=== PATIENT | male | born 1960 | race Caucasian/White ===

== ENCOUNTER 2016-08-13 20:01 | Emergency (ER) | payer OTHER ==
[~2016-08-13] VITALS: Ht 167.6 cm; Wt 74.8 kg
[~2016-08-13 20:01] MED LIST: METH-37 PO; MORP15TA3 PO; OXYC5TAB PO; SENN1TAB9 PO; TRAM-48 PO
[2016-08-13] MEDS ORDERED: TAMSULOSIN 0.4 MG CAP.ER.24H. PO ONE ×2 (20:29→20:30)
[2016-08-13] MEDS ORDERED: KETOROLAC TROMETHAMINE 30 MG/ML INJ. ONE (20:29)
[2016-08-13] MEDS ORDERED: ONDANSETRON PF 4 MG/2 ML VIAL. IV ONE (20:30)
[2016-08-13] MEDS ORDERED: KETOROLAC TROMETHAMINE 30 MG/ML INJ. IV ONE (20:30)
[2016-08-13] MEDS ORDERED: HYDROmorphone 2 MG/ML VIAL ONE (20:30)
[2016-08-13] MEDS ORDERED: HYDROmorphone 2 MG/ML VIAL IV ONE ×2 (20:30→22:30)
[2016-08-13] MEDS ORDERED: IV NORMAL SALINE 1000ML BAG 1,000 ML IV ONE (20:30)
[2016-08-13 20:33] LABS: BASO # 0.1 x10^3/uL (0.0-0.2); BASO % 1 % (0-3); EOS % 4 % (0-3); HEMATOCRIT 43.4 % (39.0-53.0); HEMOGLOBIN 15.2 g/dL (13.0-17.5); LYMPH # 2.1 x10^3/uL (1.0-4.8); LYMPH % 26 % (24-48); MEAN CORPUSCULAR HEMOGLOBIN 30 pg (25-35); MEAN CORPUSCULAR HGB CONC 35 g/dL (31-37); MEAN CORPUSCULAR VOLUME 87 fL (79-100); MONO % 11 % (0-9); NEUT % 58 % (31-73); PLATELET COUNT 230 x10^3/uL (140-400); RED BLOOD COUNT 5.01 x10^6/uL (4.30-5.70); RED CELL DISTRIBUTION WIDTH 13.5 % (11.5-14.5)
[2016-08-13 20:48] LABS: CALCIUM 9.3 mg/dL (8.5-10.1); POTASSIUM 3.9 mmol/L (3.5-5.1)
[2016-08-13 20:54] LABS: ALBUMIN 3.9 g/dL (3.4-5.0); ALBUMIN/GLOBULIN RATIO 1.1 (1.0-1.7); TOTAL BILIRUBIN 0.3 mg/dL (0.2-1.0); TOTAL PROTEIN 7.4 g/dL (6.4-8.2)
[2016-08-13 21:21] LABS: BILIRUBIN,URINE NEGATIVE (NEG); GLUCOSE,URINE NEGATIVE (NEG); NITRITE,URINE NEGATIVE (NEG); PROTEIN,URINE NEGATIVE (NEG-TRACE); UROBILINOGEN,URINE 0.2 mg/dL (0.2 mg/dL)
--- NOTE | 2016-08-13 21:24 | RAD ---
History: Left flank pain. Comparison: CT abdomen and pelvis November 01, 2012. Technique: CT of the abdomen and pelvis was performed without intravenous or oral contrast. Exposure: One or more of the following individualized dose reduction techniques were utilized for this examination: 1. Automated exposure control 2. Adjustment of the mA and/or kV according to patient size 3. Use of iterative reconstruction technique Findings: Evaluation of solid organs of the abdomen and pelvis is limited by lack of intravenous contrast. Evaluation of enteric structures may be limited by lack of oral contrast. Liver, spleen, pancreas, gallbladder, and bilateral adrenal glands are unremarkable. No bowel obstruction or inflammation is seen. Appendix is without evidence of inflammation. There is moderate left hydroureteronephrosis secondary to 4 mm distal left ureteral stone located 1 cm from the ureterovesical junction. The left kidney demonstrates about 8 stones ranging in size from 2 to 6 mm. Right kidney and ureter are free of stone or obstruction. A small fat-containing epigastric ventral hernia is present. No free air or free fluid is seen in the abdomen or pelvis. Impression: 1. Moderate left hydroureteronephrosis secondary to 4 mm distal left ureteral stone. 2. Multiple left renal collecting system stones. Electronically signed by: Noah Herrmann MD (08/13/2016 9:21 PM)
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
[2016-08-13 21:36] LABS: BACTERIA,URINE 0 /HPF (0-FEW); RBC,URINE >40 /HPF (0-2); SQUAMOUS EPITHELIAL CELL,UR MOD /LPF; WBC,URINE 0 /HPF (0-4)
[2016-08-13 22:00] VITALS: BP 160/94
--- NOTE | 2016-08-13 22:08 | ACF ---
Admission Forms Criteria RENAL COLIC AND KIDNEY STONES Clinical Indications for Admission to Inpatient Care ( Place 'X' for any and all applicable criteria): Admission is indicated for ANY ONE of the following (1)(2)(3)(4): [X]I. Inpatient admission required rather than observation care (Also use Renal Colic and Kidney Stones: Observation Care Criteria as appropriate) because of ANY ONE of the following: [ ]a) Severe pain requiring acute inpatient management [ ]b) Urinary tract infection identified [ ]c) Vomiting that is severe or persistent [ ]d) IV fluid required rather than oral rehydration to replace significant ongoing (eg, for greater than 24 hours) losses (greater than 200 mL/hr or 3 L/m2 per day) [ ]e) Percutaneous or open drainage (eg, abscess, biliary tract) procedures [X]f) Other condition, treatment or monitoring requiring inpatient admission [ ]II. Impending acute renal failure [ ]III. Bilateral obstruction [ ]IV. Single kidney with obstruction [ ]V. Transplanted kidney with obstruction [ ]. Possible open surgical procedure needed (eg, pyonephrosis, stone removal not amendable to other means) [ ]VII. Hemodynamic instability Extended stay beyond goal length of stay may be needed for(2)(3)(31): [ ]a) Failed initial stone removal (32) [ ]b) Pyonephrosis [ ]c) Obstructive uropathy with urinary tract infection [ ]d) Procedure complications [ ]e) Comorbidities (22) The original [facility] [employer] content created by [employer] has been revised. The portions of the content which have been revised are identified through the use of italic text or in bold, and [employer] [facility] [facility] has neither reviewed nor approved the modified material. All other unmodified content is copyright [facility] [employer]. Please see references footnoted in the original [facility] [employer] edition 2016 Admission Criteria Met?: Yes CHIKI JEREZ Aug 13, 2016 22:08
[2016-08-13] MEDS ORDERED: OXYC-323 PO (22:10)
[2016-08-13] MEDS ORDERED: TAMS0.4C97 PO (22:10)
[2016-08-13] MEDS ORDERED: ONDA4TAB10 SL (22:10)
[2016-08-13] MEDS ORDERED: PROM25TA10 PO (22:10)
== END 2016-08-13 22:32 | disposition home or self-care (01) ==
LOC: ER 20:01
DX: N13.2 Hydronephrosis with renal and ureteral calculous obstruction (principal); Z87.442 Personal history of urinary calculi; Z98.890 Other specified postprocedural states
CPT/HCPCS: 36415; 74176; 80053; 81001; 83690; 85027; 96361; 96374; 96375; 96376; 99285; J1170; J1885; J2405; J7030

== ENCOUNTER 2017-02-17 06:58 | Emergency (ER) | payer OTHER ==
[2017-02-17] MEDS: KETOROLAC 30 MG/ML INJ. IV (07:15)
[2017-02-17] MEDS: IV NORMAL SALINE 1000ML BAG 1,000 ML IV ×2 (07:16→09:05)
[2017-02-17] MEDS: ONDANSETRON PF 4 MG/2 ML VIAL. IV (07:17)
[2017-02-17 07:27] LABS: BILIRUBIN,URINE NEGATIVE (NEG); GLUCOSE,URINE NEGATIVE (NEG); NITRITE,URINE NEGATIVE (NEG); PH,URINE 7.5; PROTEIN,URINE NEGATIVE (NEG-TRACE); UROBILINOGEN,URINE 0.2 mg/dL (0.2 mg/dL)
[2017-02-17 07:40] LABS: RBC,URINE >40 /HPF (0-2); SQUAMOUS EPITHELIAL CELL,UR OCC /LPF
[2017-02-17 07:41] LABS: BACTERIA,URINE 0 /HPF (0-FEW); WBC,URINE OCC /HPF (0-4)
[2017-02-17] MEDS: diphenhydrAMINE 50 MG/ML VIAL IVP (08:10)
[2017-02-17] MEDS: MORPHINE SULFATE 2 MG/ML DISP.SYRIN. IV (08:11)
[2017-02-17] MEDS: PROMETHAZINE 12.5 MG in IV DEXTROSE 5% 50 ML IV (08:24)
[2017-02-17] MEDS: HYDROmorphone 2 MG/ML VIAL IV ×3 (08:50→14:33)
[2017-02-17 10:36] LABS: ADD MAN DIFF? NO
[2017-02-17 10:42] LABS: BASO # 0.1 x10^3/uL (0.0-0.2); BASO % 1 % (0-3); EOS % 7 % (0-3); HEMATOCRIT 46.1 % (39.0-53.0); HEMOGLOBIN 15.6 g/dL (13.0-17.5); LYMPH # 1.3 x10^3/uL (1.0-4.8); LYMPH % 24 % (24-48); MEAN CORPUSCULAR HEMOGLOBIN 30 pg (25-35); MEAN CORPUSCULAR HGB CONC 34 g/dL (31-37); MEAN CORPUSCULAR VOLUME 88 fL (79-100); MONO % 8 % (0-9); NEUT % 60 % (31-73); PLATELET COUNT 250 x10^3/uL (140-400); RED BLOOD COUNT 5.21 x10^6/uL (4.30-5.70); RED CELL DISTRIBUTION WIDTH 13.2 % (11.5-14.5); WHITE BLOOD COUNT 5.6 x10^3/uL (4.0-11.0)
[2017-02-17 10:53] LABS: ANION GAP 12 (6-14); BLOOD UREA NITROGEN 18 mg/dL (8-26); BUN/CREATININE RATIO 18 (6-20); CALCIUM 9.3 mg/dL (8.5-10.1); CARBON DIOXIDE 28 mmol/L (21-32); CHLORIDE 102 mmol/L (98-107); GFR 76.7; GLUCOSE 87 mg/dL (70-99); POTASSIUM 4.3 mmol/L (3.5-5.1); SODIUM 142 mmol/L (136-145)
[2017-02-17 10:59] LABS: ALBUMIN 4.2 g/dL (3.4-5.0); ALBUMIN/GLOBULIN RATIO 1.2 (1.0-1.7); ALK PHOS 81 U/L (46-116); ALT (SGPT) 22 U/L (16-63); AST (SGOT) 16 U/L (15-37); TOTAL BILIRUBIN 0.5 mg/dL (0.2-1.0); TOTAL PROTEIN 7.7 g/dL (6.4-8.2)
== END 2017-02-17 14:48 | disposition short-term general hospital (02) ==
LOC: ER 14:48
DX: N13.30 Unspecified hydronephrosis (principal); N20.1 Calculus of ureter; Z87.442 Personal history of urinary calculi
CPT/HCPCS: 36415; 74176; 80053; 81001; 85025; 96361; 96365; 96375; 96376; 99285-25; J1170; J1200; J1885; J2270; J2405; J2550; J7030

== ENCOUNTER 2017-07-27 13:09 | Emergency (ER) | payer OTHER ==
[2017-07-27] MEDS: TETRACAINE 0.5% OPHTH SOLUTION 4ML BOTTLE. OS (15:08)
[2017-07-27] MEDS: FLUORESCEIN OPHTH TEST STRIP. OS (15:08)
[2017-07-27] MEDS: DIPHTH,PERTUSS(ACELL),TET TOX 0.5 ML DISP.SYRIN. VAX IM (15:13)
== END 2017-07-27 15:18 | disposition home or self-care (01) ==
LOC: ER 13:09
DX: S05.02XA Injury of conjunctiva and corneal abrasion without foreign body, left eye, initial encounter (principal); X58.XXXA Exposure to other specified factors, initial encounter; Y93.89 Activity, other specified; Y99.8 Other external cause status; Y92.89 Other specified places as the place of occurrence of the external cause
CPT/HCPCS: 90471; 90715; 99283-25

== ENCOUNTER 2020-12-29 09:55 | Emergency (ER) | payer BC, OTHER ==
[~2020-12-29] VITALS: Ht 165.1 cm; Wt 72.2 kg
[~2020-12-29 09:55] MED LIST changes: +ERYT1OIN6 OP; +MORP-15 PO; -MORP15TA3 PO; +ONDA4TAB10 SL; +OXYC1TAB15 PO; -OXYC5TAB PO; +OXYC5TAB4 PO; +PROM25TA10 PO; +SENN-162 PO; -SENN1TAB9 PO; +TAMS0.4C97 PO
[2020-12-29 10:36] VITALS: BP 181/92
[2020-12-29] MEDS ORDERED: KETOROLAC 60 MG/2 ML VIAL. IM ONE (10:45)
[2020-12-29] MEDS ORDERED: HYDROcodone/APAP 5/325MG 1 TAB TABLET PO ONE (10:45)
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
--- NOTE | 2020-12-29 11:51 | RAD ---
CT PELVIS WO History: Left hip pain at the greater trochanter. Comparison: CT abdomen and pelvis 02/17/2017 Technique: Noncontrast CT of the pelvis. Findings: Osseous mineralization is normal. There are linear calcifications adjacent to the left anterior facet of the greater trochanter, new from 2017. The underlying cortex appears intact. No displaced fractur es are identified. The sacroiliac joints are unremarkable. There are mild degenerative changes of odilon ateral femoral acetabular joints with marginal osteophytes. Degenerative changes of the lower lumbar spine with severe disc space narrowing L4-L5 and L5-S1 and bilateral neural foraminal narrowing at L4 -L5 and L5-S1. Fat-containing within the right inguinal canal. Mild abdominal aortic calcification. The bladder and prostate are unremarkable. Impression: 1. Linear calcifications at the anterior facet of the left hip, new from 2016 comparison may represe nt gluteus minimus avulsive injury versus these adenopathy. The intact-appearing cortex of the anteri or facet of the greater trochanter suggests this was not an acute avulsion injury. 2. Degenerative changes of the hips and lumbar spine as above. ------ Exposure: One or more of the following individualized dose reduction techniques were utilized for thi s examination: 1. Automated exposure control 2. Adjustment of the mA and/or kV according to patient size 3. Use of iterative reconstruction technique. Electronically signed by: Colin Montanez MD (12/29/2020 11:48 AM) [id number]
[2020-12-29] MEDS ORDERED: IBUP-1007 PO (12:20)
== END 2020-12-29 12:31 | disposition home or self-care (01) ==
LOC: ER 09:55
DX: M25.552 Pain in left hip (principal); F17.200 Nicotine dependence, unspecified, uncomplicated
CPT/HCPCS: 72192; 96372; 99284; J1885

== ENCOUNTER 2021-04-29 09:46 | Emergency (ER) | payer BC ==
[~2021-04-29] VITALS: Ht 165.1 cm; Wt 79.9 kg
[~2021-04-29 09:46] MED LIST changes: +IBUP-1007 PO
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
[2021-04-29] MEDS ORDERED: IBUPROFEN 100 MG/5 ML ORAL.SUSP. PO ONE (11:45)
[2021-04-29] MEDS ORDERED: DEXAMETHASONE SOD PHOS 20 MG/5 ML VIAL. IV ONE (11:45)
--- NOTE | 2021-04-29 12:05 | RAD ---
Portable chest x-ray without comparison for cough with congestion. FINDINGS: There is calcified granuloma in the left lung peripherally. No pneumothorax, pleural effusi on, congestive heart failure, or focal pneumonic infiltrate. Normal heart size. Old healed left clavi triston fracture. IMPRESSION: 1. No acute cardiopulmonary abnormality. Electronically signed by: Heber Anthony MD (04/29/2021 12:03 PM) [id number]
[2021-04-29 13:26] VITALS: BP 161/111
[2021-04-29 13:29] LABS: INFLUENZA A PATIENT NEGATIVE (NEGATIVE); INFLUENZA B PATIENT NEGATIVE (NEGATIVE)
[2021-04-29] MEDS ORDERED: PRED20TA PO (14:09)
[2021-04-29] MEDS ORDERED: ALBU2.5V8 IH (14:09)
== END 2021-04-29 14:40 | disposition home or self-care (01) ==
LOC: ER 09:46
DX: J40 Bronchitis, not specified as acute or chronic (principal); F17.200 Nicotine dependence, unspecified, uncomplicated; Z20.822 Contact with and (suspected) exposure to COVID-19
CPT/HCPCS: 71045; 87070; 87428; 87880; 96374; 99284; J1100